=== PATIENT | male | born 1970 | race Caucasian/White ===

== ENCOUNTER 2017-03-13 22:40 | Emergency (ER) | payer SELFPAY ==
[2017-03-13] MEDS ORDERED: Diphtheria,Pertussis(Acell),Tetanus Vaccine 0.5 ML Syringe IM ONE (22:49)
[2017-03-13] MEDS ORDERED: Lidocaine 1% 20 ML MDV INJECT ONE (22:50)
[2017-03-13] MEDS ORDERED: Bacitracin Oint 1 GM U/D Packet TOP ONE (22:54)
--- NOTE | 2017-03-13 22:54 | EDM.PDOC ---
ED HPI GENERAL MEDICAL PROBLEM - General Stated Complaint: LACERATION LT THUMB Time Seen by Provider: 03/13/17 22:43 - History of Present Illness INITIAL COMMENTS - FREE TEXT/NARRATIVE: HISTORY AND PHYSICAL: History of present illness: The patient is a 46-year-old male with history of hypertension hypercholesterolemia who is unsure of his last tetanus shot and presents after cutting his left thumb on a console of a minivan just prior to arrival. The console came down sharply and there was a sharp edge underneath it and it caught his left thumb. He has some tingling to the finger but he is able to move the thumb and he is right-hand dominant. There is no other injuries to the hand or elsewhere and he had no systemic complaints prior to this event Review of systems: As per history of present illness and below otherwise all systems reviewed and negative. Past medical history: As per history of present illness and as reviewed below otherwise noncontributory. Surgical history: As per history of present illness and as reviewed below otherwise noncontributory. Social history: No reported history of drug or alcohol abuse. Family history: As per history of present illness and as reviewed below otherwise noncontributory. Physical exam: Gen.: Well-developed overweight male who is nontoxic and ambulatory in the ED. HEENT: Atraumatic, normocephalic, negative for conjunctival pallor or scleral icterus, mucous membranes moist, throat clear, neck supple, nontender, trachea midline. Lungs: Clear to auscultation, breath sounds equal bilaterally, chest nontender. Heart: S1S2, regular rate and rhythm no overt murmurs Abdomen: Soft, nondistended, nontender. NABS Genitourinary: Deferred. Rectal: Deferred. Extremities: Atraumatic throughout with full range of motion with the exception of the palmar surface of the left thumb near the PIP flexure where there is a 2.0 cm laceration with oozing of blood and subcutaneous tissue seen. The laceration is linear and there is no soft tissue swelling or palpable bony deformities. The patient has full range of motion flexion extension and opposition of the thumb against resistance. The legs are, negative for cords or calf pain. Neurovascular unremarkable. Neuro: Awake, alert, oriented. Cranial nerves II through XII unremarkable. Cerebellum unremarkable. Motor and sensory unremarkable throughout. Exam nonfocal. Diagnostics: X-ray left thumb Therapeutics: Tdap, wound care Procedure note: After the procedure was explained to the patient and the wound was irrigated by nursing 1% lidocaine without epinephrine was infused in a local fashion and the wound was explored. No foreign bodies were appreciated in the skin edges were reapproximated using a total number of # 4 sutures of 4-0 nylon. Hemostasis was achieved with the suturing as well as a pressure dressing. There were no complications and the patient tolerated the procedure well. A tube gauze with bacitracin and a loose Fernando will be placed Impression: Left thumb laceration Definitive disposition and diagnosis as appropriate pending reevaluation and review of above. Left 1-Thumb Pain Score (Numeric/FACES): 8 - Related Data Allergies Allergy/AdvReac Type Severity Reaction Status Date / Time No Known Allergies Allergy Verified 03/13/17 22:59 Home Meds: Home Meds Hydrochlorothiazide 12.5 mg PO BID 03/13/17 [History] Simvastatin [Zocor] 20 mg PO BEDTIME 03/13/17 [History] amLODIPine Besylate/Benazepril [Amlodipine-Benazepril 10-20 MG] 1 each PO [History] ED ROS GENERAL - Review of Systems Review Of Systems: ROS reveals no pertinent complaints other than HPI. ED EXAM, GENERAL - Physical Exam Exam: See Below (See dictation) Course - Vital Signs Last Recorded V/S: Last Vital Signs Temp 36.4 C 03/13/17 23:04 Pulse 80 03/13/17 23:04 Resp 18 03/13/17 23:04 BP 134/84 03/13/17 23:04 Pulse Ox 95 03/13/17 23:04 - Orders/Labs/Meds Orders: Active Orders 24 hr Category Date Time Status Communication Order [RC] STAT Care 03/13/17 22:54 Active Vaccines to be Administered [RC] PER UNIT ROUTINE Care 03/13/17 22:50 Active Fingers Thumb Lt FA [CR] Stat Exams 03/13/17 22:50 Taken Meds: Medications Discontinued Medications Generic Name Dose Route Start Last Admin Trade Name Freq PRN Reason Stop Dose Admin Bacitracin 1 dose 03/13/17 22:54 03/13/17 23:23 Bacitracin Oint 1 Gm TOP 03/13/17 22:55 1 dose ONETIME ONE Administration Diphtheria/Tetanus/Acell Pertussis 0.5 ml 03/13/17 22:49 03/13/17 23:23 Adacel IM 03/13/17 22:50 0.5 ml .ONCE ONE Administration Lidocaine HCl 20 ml 03/13/17 22:50 03/13/17 23:23 Xylocaine 1% INJECT 03/13/17 22:51 20 ml ONETIME ONE Administration Departure - Departure Time of Disposition: 00:26 Disposition: Home, Self-Care 01 Condition: Good Clinical Impression: Laceration of left thumb Qualifiers: Encounter type: initial encounter Damage to nail status: without damage Foreign body presence: without foreign body Qualified Code(s): S61.012A - Laceration without foreign body of left thumb without damage to nail, initial encounter - Discharge Information Additional Instructions: The following information is given to patients seen in the emergency department who are being discharged to home. This information is to outline your options for follow-up care. We provide all patients seen in our emergency department with a follow-up referral. The need for follow-up, as well as the timing and circumstances, are variable depending upon the specifics of your emergency department visit. If you don't have a primary care physician on staff, we will provide you with a referral. We always advise you to contact your personal physician following an emergency department visit to inform them of the circumstance of the visit and for follow-up with them and/or the need for any referrals to a consulting specialist. The emergency department will also refer you to a specialist when appropriate. This referral assures that you have the opportunity for followup care with a specialist. All of these measure are taken in an effort to provide you with optimal care, which includes your followup. Under all circumstances we always encourage you to contact your private physician who remains a resource for coordinating your care. When calling for followup care, please make the office aware that this follow-up is from your recent emergency room visit. If for any reason you are refused follow-up, please contact the [facility] emergency department at and ask to speak to the emergency department charge nurse. [facility] Specialty clinic-Plastic Surgery and Hand Surgery Professional [address] [address] Please call and follow-up with our hand specialist due to the bleeding of this laceration. The hand specialist can remove the sutures or you can return to the ED for the sutures to be removed in 7 days. Please keep the area clean dry and do not get wet for at least 24 hours and then remove the dressing wash with mild soap and water pat dry and apply bacitracin for the next 2 days. Return to ER sooner as needed and as discussed - My Orders Last 24 Hours: My Active Orders 03/13/17 22:50 Vaccines to be Administered [RC] PER UNIT ROUTINE Fingers Thumb Lt FA [CR] Stat 03/13/17 22:54 Communication Order [RC] STAT - Assessment/Plan Last 24 Hours: My Active Orders 03/13/17 22:50 Vaccines to be Administered [RC] PER UNIT ROUTINE Fingers Thumb Lt FA [CR] Stat 03/13/17 22:54 Communication Order [RC] STAT
[2017-03-14 01:58] VITALS: BP 157/91
--- NOTE | 2017-03-14 10:03 | CR ---
EXAM DATE: 03/13/17 PATIENT'S AGE: 46 Patient: ANGELO HELTON Facility: [place], [place] Site . Site : [id number] Study: XRay Extremity thumb [id number]/25/2017 11:26:24 PM Ordering Physician: Sanjay Hsu Final Report: INDICATION: Laceration TECHNIQUE: Three views left thumb COMPARISON: None FINDINGS: Bones: Alignment is normal. No fractures or bone lesions. Joint spaces: Unremarkable. Soft tissues: Unremarkable. IMPRESSION: Negative. Dictated by Daryl Auguste MD @ 03/13/2017 11:31:58 PM Dictated by: Daryl Auguste MD @ 03/13/2017 23:32:08 (Electronic Signature) Report Signed by Proxy. [facility]
== END 2017-03-14 00:35 | disposition home or self-care (01) ==
LOC: MW.ED 22:40
DX: S61.012A Laceration without foreign body of left thumb without damage to nail, initial encounter (principal); Z23 Encounter for immunization; I10 Essential (primary) hypertension; E78.00 Pure hypercholesterolemia, unspecified; W45.8XXA Other foreign body or object entering through skin, initial encounter
CPT/HCPCS: 12001; 73140-26-FA; 73140-FA; 90471; 90715; 99283; 99283-25